=== PATIENT | female | born 1950 | race African-American/Black ===

== ENCOUNTER 2021-02-19 12:49 | Inpatient (IN) | payer OTHER ==
[2021-02-19 14:40] LABS: BASO % 0.8 % (0-2.0); EOS % 2.2 % (0-4.5); HEMATOCRIT 37.3 % (32.4-45.2); HEMOGLOBIN 12.6 GM/dL (10.7-15.3); LYMPH % 39.5 % (8-40); MCH 30.6 pg (25.7-33.7); MCHC 33.8 g/dl (32.0-36.0); MEAN CELL VOLUME 90.4 fl (80-96); MONO % 9.2 % (3.8-10.2); NEUT % 48.3 % (42.8-82.8); PLATELET COUNT 333 K/MM3 (134-434); RBC 4.12 M/mm3 (3.60-5.2)
[2021-02-19 15:06] LABS: CALCIUM 9.6 mg/dL (8.5-10.1)
[2021-02-19 15:08] LABS: ALBUMIN 3.3 g/dl (3.4-5.0); BLOOD UREA NITROGEN 14.8 mg/dL (7-18)
[2021-02-19 15:11] LABS: BILIRUBIN,TOTAL 0.4 mg/dL (0.2-1); CREATININE 0.9 mg/dL (0.55-1.3); TOT PROT 7.7 g/dl (6.4-8.2)
[2021-02-19] MEDS ORDERED: ASPIRIN 81 MG CHEWABLE TABLETS PO ONE (15:19)
[2021-02-19] MEDS ORDERED: ASPIRIN 81 MG CHEWABLE TABLETS ONE (16:13)
[2021-02-19] MEDS ORDERED: ATORVASTATIN CA 10 MG TABLET (FP) PO SCH (22:00)
[2021-02-20 03:32] VITALS: BMI 35.8
[2021-02-20 05:35] LABS: BASO % 0.5 % (0-2.0); EOS % 2.6 % (0-4.5); HEMATOCRIT 39.3 % (32.4-45.2); HEMOGLOBIN 13.1 GM/dL (10.7-15.3); LYMPH % 38.2 % (8-40); MCHC 33.4 g/dl (32.0-36.0); MEAN CELL VOLUME 89.9 fl (80-96); MEAN PLT VOLUME 8.7 fl (7.5-11.1); MONO % 10.8 % (3.8-10.2); NEUT % 47.9 % (42.8-82.8); PLATELET COUNT 305 K/MM3 (134-434); RBC 4.37 M/mm3 (3.60-5.2); RDW 12.8 % (11.6-15.6); WHITE BLOOD COUNT 12.4 K/mm3 (4.0-10.0)
[2021-02-20 05:51] LABS: CALCIUM 9.2 mg/dL (8.5-10.1)
[2021-02-20 05:52] LABS: BLOOD UREA NITROGEN 16.6 mg/dL (7-18)
[2021-02-20 05:55] LABS: CREATININE 0.8 mg/dL (0.55-1.3)
[2021-02-20 05:56] LABS: BILIRUBIN,TOTAL 0.5 mg/dL (0.2-1)
[2021-02-20 05:57] LABS: TOT PROT 7.2 g/dl (6.4-8.2)
[2021-02-20] MEDS ORDERED: ASPIRIN 81 MG CHEWABLE TABLETS PO SCH (10:00)
[2021-02-20] MEDS ORDERED: amLODIPine BESYLATE 10 MG TABLET (FP) PO SCH (10:00)
[2021-02-20] MEDS ORDERED: PANTOPRAZOLE 40 MG TABLET PO SCH (10:00)
[2021-02-20 10:47] VITALS: BP 134/84; PULSE 88; TEMP 98.3
== END 2021-02-20 13:06 | disposition home or self-care (01) | DRG 313 ==
LOC: JER 12:49 → JERBED 16:07 → J4W 02-20 00:14 → OBSVTOIN 02-20 02:24
PROVIDERS: ADMIT Internal Medicine; ATTEND Internal Medicine
DX: R07.9 Chest pain, unspecified (principal); R00.2 Palpitations; I10 Essential (primary) hypertension; E78.5 Hyperlipidemia, unspecified; E03.9 Hypothyroidism, unspecified; I27.20 Pulmonary hypertension, unspecified; R42 Dizziness and giddiness; I25.10 Atherosclerotic heart disease of native coronary artery without angina pectoris; E78.00 Pure hypercholesterolemia, unspecified; E66.01 Morbid (severe) obesity due to excess calories; Z68.35 Body mass index [BMI] 35.0-35.9, adult
CPT/HCPCS: 36415; 71045-TC-FY; 80053; 82550; 82553; 84443; 84484; 85025; 93005; 93010; 99285-25; C9803; G0378; U0003; U0005

== ENCOUNTER 2021-11-28 13:26 | Inpatient (IN) | payer OTHER ==
[2021-11-28 13:33] VITALS: BMI 35.4
[2021-11-28 15:05] LABS: BASO % 0.4 % (0-2.0); EOS % 3.7 % (0-4.5); HEMATOCRIT 39.4 % (32.4-45.2); HEMOGLOBIN 13.1 GM/dL (10.7-15.3); LYMPH % 32.4 % (8-40); MCH 29.6 pg (25.7-33.7); MCHC 33.2 g/dl (32.0-36.0); MEAN CELL VOLUME 89.1 fl (80-96); MEAN PLT VOLUME 7.9 fl (7.5-11.1); MONO % 8.4 % (3.8-10.2); NEUT % 55.1 % (42.8-82.8); PLATELET COUNT 349 10^3/uL (134-434); RBC 4.43 M/mm3 (3.60-5.2); RDW 13.4 % (11.6-15.6); WHITE BLOOD COUNT 8.1 K/mm3 (4.0-10.0)
[2021-11-28 15:18] LABS: CALCIUM 9.6 mg/dL (8.5-10.1)
[2021-11-28 15:20] LABS: ALBUMIN 3.4 g/dl (3.4-5.0); ANION GAP 5 MMOL/L (8-16); BLOOD UREA NITROGEN 10.3 mg/dL (7-18); CHLORIDE 106 mmol/L (98-107); CO2 32 mmol/L (21-32); GLUCOSE,RANDOM 111 mg/dL (74-106); SODIUM 143 mmol/L (136-145)
[2021-11-28 15:23] LABS: CREATININE 0.6 mg/dL (0.55-1.3); SGOT/AST 25 U/L (15-37); SGPT/ALT 22 U/L (13-61)
[2021-11-28 15:24] LABS: BILIRUBIN,TOTAL 0.3 mg/dL (0.2-1)
[2021-11-28 15:26] LABS: ALK PHOS 79 U/L (45-117)
[2021-11-28] MEDS ORDERED: amLODIPine BESYLATE 10 MG TABLET (FP) PO ONE (17:40)
[2021-11-28] MEDS ORDERED: ASPIRIN 325 MG ENTERIC COATED TABLET (FP) PO ONE (17:40)
[2021-11-28] MEDS ORDERED: ASPIRIN 325 MG ENTERIC COATED TABLET (FP) ONE (18:14)
[2021-11-28] MEDS ORDERED: amLODIPine BESYLATE 10 MG TABLET (FP) ONE (18:15)
[2021-11-29] MEDS ORDERED: ASPIRIN 81 MG CHEWABLE TABLETS ONE (09:24)
[2021-11-29] MEDS ORDERED: amLODIPine BESYLATE 10 MG TABLET (FP) ONE (09:24)
[2021-11-29] MEDS: amLODIPine BESYLATE 10 MG TABLET (FP) PO SCH (09:37)
[2021-11-29] MEDS: ASPIRIN 81 MG CHEWABLE TABLETS PO SCH (09:37)
[2021-11-29] MEDS ORDERED: ATORVASTATIN CA 10 MG TABLET (FP) PO SCH (22:00)
[2021-11-29] MEDS ORDERED: MECLIZINE HCL 12.5 MG TABLET PO PRN (22:24)
[2021-11-30 07:36] LABS: BASO % 0.4 % (0-2.0); EOS % 4.6 % (0-4.5); HEMATOCRIT 38.1 % (32.4-45.2); HEMOGLOBIN 12.3 GM/dL (10.7-15.3); LYMPH % 45.8 % (8-40); MCHC 32.3 g/dl (32.0-36.0); MEAN PLT VOLUME 8.4 fl (7.5-11.1); MONO % 8.6 % (3.8-10.2); NEUT % 40.6 % (42.8-82.8); PLATELET COUNT 337 10^3/uL (134-434); RBC 4.23 M/mm3 (3.60-5.2); RDW 13.4 % (11.6-15.6); WHITE BLOOD COUNT 7.9 K/mm3 (4.0-10.0)
[2021-11-30] MEDS: ASPIRIN 81 MG CHEWABLE TABLETS PO SCH ×2 (07:57→09:20)
[2021-11-30] MEDS: amLODIPine BESYLATE 10 MG TABLET (FP) PO SCH ×2 (07:57→09:20)
[2021-11-30 08:05] LABS: BLOOD UREA NITROGEN 13.6 mg/dL (7-18)
[2021-11-30 08:06] LABS: CALCIUM 9.1 mg/dL (8.5-10.1)
[2021-11-30 08:08] LABS: CREATININE 0.6 mg/dL (0.55-1.3)
[2021-11-30 08:10] LABS: BILIRUBIN,TOTAL 0.5 mg/dL (0.2-1)
[2021-11-30] MEDS ORDERED: REGADENOSON 0.4 MG/5 ML PRE-FILLED SYRINGE IVPUSH ONE ×2 (09:49→11:00)
[2021-11-30 15:03] VITALS: BP 143/61; PULSE 78; TEMP 98.6
== END 2021-11-30 17:13 | disposition home or self-care (01) | DRG 149 ==
LOC: JER 13:26 → JERBED 17:43 → J4W 11-29 15:45
PROVIDERS: ADMIT Internal Medicine; ATTEND Internal Medicine
DX: R42 Dizziness and giddiness (principal); R77.8 Other specified abnormalities of plasma proteins; I10 Essential (primary) hypertension; E78.5 Hyperlipidemia, unspecified; E66.9 Obesity, unspecified; Z68.35 Body mass index [BMI] 35.0-35.9, adult
CPT/HCPCS: 36415; 70450-TC; 78452-TC; 80053; 80061; 82550; 82553; 83036; 84439; 84443; 84484; 85025; 93005; 93010; 93017; 93306-TC; 93880-TC; 99285-25; A9502; C9803; J2785; U0003; U0005

== ENCOUNTER → 2022-07-26 | Day surgery (SDC) | payer OTHER | END | disposition home or self-care (01) | LOC: JRADIR 08:36 | PROVIDERS: ATTEND Internal Medicine Endocrinology, Diabetes & Metabolism | PROC: 0G9G3ZX Drainage of Left Thyroid Gland Lobe, Percutaneous Approach, Diagnostic (ICD-10-PCS; principal; 2022-07-26) | DX: E04.1 Nontoxic single thyroid nodule (principal) | CPT/HCPCS: 10005; 76942; 88173; 88305-TC ==

== ENCOUNTER 2024-10-21 09:43 | Emergency (ER) | payer OTHER ==
[2024-10-21 09:48] VITALS: BP 134/63; PULSE 87; RESP 18; TEMP 98.5; BMI 35.4
[2024-10-21] MEDS ORDERED: MECLIZINE HCL 25 MG TABLET (FP) ONE (12:35)
[2024-10-21] MEDS ORDERED: METOCLOPRAMIDE HCL INJECTION 10 MG/2 ML VIAL ONE (12:36)
[2024-10-21] MEDS ORDERED: ACETAMINOPHEN INJECTION 100 ML ONE (12:36)
[2024-10-21] MEDS: ACETAMINOPHEN 1000 MG/100 ML BAG IVPB ONE (12:53)
[2024-10-21] MEDS: SODIUM CHLORIDE 0.9% 1000 ML INFUS.BAG IV ONE (12:53)
[2024-10-21] MEDS: MECLIZINE HCL 25 MG TABLET (FP) PO ONE (12:53)
[2024-10-21] MEDS: METOCLOPRAMIDE HCL INJECTION 10 MG/2 ML VIAL IVPB ONE (12:54)
== END 2024-10-21 14:46 | disposition home or self-care (01) ==
LOC: JER 09:43
PROC: 3E033NZ Introduction of Analgesics, Hypnotics, Sedatives into Peripheral Vein, Percutaneous Approach (ICD-10-PCS; principal; 2024-10-21)
PROC: 3E033GC Introduction of Other Therapeutic Substance into Peripheral Vein, Percutaneous Approach (ICD-10-PCS; 2024-10-21)
PROC: 3E033GC Introduction of Other Therapeutic Substance into Peripheral Vein, Percutaneous Approach (ICD-10-PCS; 2024-10-21)
DX: R51.9 Headache, unspecified (principal); R42 Dizziness and giddiness
CPT/HCPCS: 70450-TC; 99284-25; J0131

== ENCOUNTER 2024-10-25 04:15 | Day surgery (SDC) | payer OTHER ==
[2024-10-24 17:03] VITALS: BMI 35.4
[2024-10-25] MEDS ORDERED: ACETAMINOPHEN 500 MG TABLET (FP) PO PRN (09:18)
[2024-10-25 13:08] VITALS: RESP 16
[2024-10-25] MEDS: LIDOCAINE HCL 1% PRESERVATIVE FREE - 30ML VIAL IJ ONE ×2 (13:52)
[2024-10-25] MEDS: DEXAMETHASONE SOD PHOSPHATE 10 MG/1 ML VIAL IVPUSH ONE ×2 (13:52)
[2024-10-25 14:12] VITALS: BP 136/67; PULSE 77; TEMP 97.7
== END 2024-10-25 14:30 | disposition home or self-care (01) ==
LOC: JASU-SURG 04:15
PROVIDERS: ATTEND Pain Medicine Pain Medicine
PROC: 3E0R3BZ Introduction of Anesthetic Agent into Spinal Canal, Percutaneous Approach (ICD-10-PCS; 2024-10-25)
PROC: 3E0R33Z Introduction of Anti-inflammatory into Spinal Canal, Percutaneous Approach (ICD-10-PCS; principal; 2024-10-25 14:45)
DX: M54.16 Radiculopathy, lumbar region (principal)
CPT/HCPCS: 76000-TC-FY; J1100

== ENCOUNTER 2025-04-04 09:54 | Inpatient (IN) | payer OTHER ==
[2025-04-04] MEDS ORDERED: ACETAMINOPHEN INJECTION 100 ML ONE (10:55)
[2025-04-04 11:00] LABS: ABSOLUTE IMMATURE GRANULOCYTES 0.03 x10^3/uL (0.0-0.031); BASOPHILS # 0.04 x10^3/uL (0.01-0.08); EOSINOPHIL % 0.1 % (0.7-5.8); EOSINOPHILS # 0.01 x10^3/uL (0.04-0.36); HEMATOCRIT 39.3 % (34.1-44.9); HEMOGLOBIN 12.5 g/dL (11.2-15.7); MCHC 31.8 g/dl (32.2-35.5); MEAN CELL VOLUME 91.8 fl (79.4-94.8); MEAN PLT VOLUME 9.9 fl (9.4-12.3); MONOCYTE # 0.41 x10^3/uL (0.24-0.86); MONOCYTE % 3.8 % (4.7-12.5); PLATELET COUNT 303 x10^3/uL (182-369); RDW 13.2 % (12.4-16.6)
[2025-04-04] MEDS: ACETAMINOPHEN 1000 MG/100 ML BAG IVPB ONE (11:01)
[2025-04-04 11:28] LABS: EPI CELLS 13 /uL (0-25.1); HYALINE CASTS 1 /uL (0-3.1); URINE APPEARANCE CLEAR; URINE BACTERIA 92 /uL (0-1359); URINE BILIRUBIN NEGATIVE (NEGATIVE); URINE COLOR YELLOW; URINE GLUCOSE (UA) NEGATIVE (NEGATIVE); URINE KETONE TRACE (NEGATIVE); URINE LEUK ESTERASE NEGATIVE (NEGATIVE); URINE NITRITE NEGATIVE (NEGATIVE); URINE PROTEIN 1+ (NEGATIVE); URINE RBC 31 /uL (0-23.9); URINE UROBILINOGEN 0.2 mg/dL (0.2-1.0); URINE WBC 20 /uL (0-25.8)
[2025-04-04 12:40] LABS: CALCIUM 9.7 mg/dL (8.5-10.1)
[2025-04-04 12:41] LABS: ALBUMIN 3.3 g/dl (3.4-5.0); BLOOD UREA NITROGEN 12.1 mg/dL (7-18); MAGNESIUM 2.4 mg/dL (1.8-2.4)
[2025-04-04 12:44] LABS: CREATININE 0.7 mg/dL (0.55-1.3)
[2025-04-04 12:46] LABS: BILIRUBIN,TOTAL 0.2 mg/dL (0.2-1); TOT PROT 7.8 g/dl (6.4-8.2)
[2025-04-04] MEDS ORDERED: IBUPROFEN 600 MG TABLET (FP) PO ONE (14:25)
[2025-04-04] MEDS: IBUPROFEN 600 MG TABLET (FP) PO ONE (14:29)
[2025-04-04] MEDS ORDERED: cefTRIAXone SODIUM 1 GM VIAL ONE (16:14)
[2025-04-04 19:33] LABS: HCV DIAGNOSTIC IN-HOUSE W/RFLX NON-REACTIVE (NONREACTIVE); HIV INTERPRETATION NEGATIVE (NEGATIVE)
[2025-04-04] MEDS ORDERED: MAG HYDROX/AL HYDROX/SIMETH -MYLANTA- ORAL SUSPENSION PO ONE (21:34)
[2025-04-04] MEDS: GABAPENTIN 300 MG CAPSULE PO SCH (21:50)
[2025-04-04] MEDS: MAG HYDROX/AL HYDROX/SIMETH 30 ML UNIT-DOSE CUP PO ONE (21:50)
[2025-04-04] MEDS: SENNOSIDES 8.6MG TABLET (FP) PO PRN (22:33)
[2025-04-05] MEDS: ACETAMINOPHEN 1000 MG/100 ML BAG IVPB ONE (01:02)
[2025-04-05 08:21] LABS: ABSOLUTE IMMATURE GRANULOCYTES 0.04 x10^3/uL (0.0-0.031); BASOPHILS # 0.01 x10^3/uL (0.01-0.08); HEMATOCRIT 43.4 % (34.1-44.9); HEMOGLOBIN 13.9 g/dL (11.2-15.7); MEAN CELL VOLUME 90.4 fl (79.4-94.8); MEAN PLT VOLUME 10.6 fl (9.4-12.3); MONOCYTE # 0.24 x10^3/uL (0.24-0.86); MONOCYTE % 2.3 % (4.7-12.5); PLATELET COUNT 312 x10^3/uL (182-369)
[2025-04-05 08:55] LABS: BLOOD UREA NITROGEN 15.4 mg/dL (7-18); CALCIUM 10.5 mg/dL (8.5-10.1)
[2025-04-05 08:56] LABS: ALBUMIN 3.4 g/dl (3.4-5.0)
[2025-04-05 08:59] LABS: CREATININE 0.7 mg/dL (0.55-1.3)
[2025-04-05 09:01] LABS: BILIRUBIN,TOTAL 0.4 mg/dL (0.2-1); TOT PROT 7.8 g/dl (6.4-8.2)
[2025-04-05] MEDS: FUROSEMIDE 20 MG TABLET (FP) PO SCH (09:11)
[2025-04-05] MEDS: LOSARTAN POTASSIUM 25 MG TABLET PO SCH (09:11)
[2025-04-05] MEDS: amLODIPine BESYLATE 10 MG TABLET (FP) PO SCH (09:11)
[2025-04-05] MEDS: ATORVASTATIN CA 10 MG TABLET (FP) PO SCH (09:11)
[2025-04-05] MEDS: PANTOPRAZOLE 40 MG TABLET PO SCH (10:51)
[2025-04-05] MEDS: LACTATED RINGERS SOLUTION 1,000 ML/1,000 ML INFUS.BAG IV SCH (11:28)
[2025-04-05] MEDS: PANTOPRAZOLE SODIUM 40 MG VIAL IVPUSH SCH (11:28)
[2025-04-05] MEDS ORDERED: POLYETHYLENE GLYCOL (HEALTHYLAX) 3350 17 GM PACKET PO PRN (17:52)
[2025-04-06 08:15] LABS: HEMATOCRIT 40.8 % (34.1-44.9); HEMOGLOBIN 12.9 g/dL (11.2-15.7); MCHC 31.6 g/dl (32.2-35.5); MEAN CELL VOLUME 91.3 fl (79.4-94.8); PLATELET COUNT 327 x10^3/uL (182-369); RDW 13.3 % (12.4-16.6)
[2025-04-06 08:38] LABS: POTASSIUM 3.7 mmol/L (3.5-5.1)
[2025-04-06 08:44] LABS: ALBUMIN 2.9 g/dl (3.4-5.0); CALCIUM 9.2 mg/dL (8.5-10.1)
[2025-04-06 08:45] LABS: BLOOD UREA NITROGEN 16.8 mg/dL (7-18)
[2025-04-06 08:47] LABS: BILIRUBIN,TOTAL 0.5 mg/dL (0.2-1); CREATININE 0.8 mg/dL (0.55-1.3); TOT PROT 6.6 g/dl (6.4-8.2)
[2025-04-07] MEDS: ONDANSETRON 4 MG/2 ML VIAL IVPUSH PRN (00:44)
[2025-04-07 08:09] LABS: HEMATOCRIT 42.4 % (34.1-44.9); HEMOGLOBIN 13.5 g/dL (11.2-15.7); MCHC 31.8 g/dl (32.2-35.5); MEAN CELL VOLUME 91.8 fl (79.4-94.8); MEAN PLT VOLUME 10.1 fl (9.4-12.3); PLATELET COUNT 332 x10^3/uL (182-369)
[2025-04-07 08:22] LABS: POTASSIUM 3.5 mmol/L (3.5-5.1)
[2025-04-07 08:24] LABS: CALCIUM 9.6 mg/dL (8.5-10.1)
[2025-04-07 08:25] LABS: BLOOD UREA NITROGEN 16.9 mg/dL (7-18)
[2025-04-07 08:28] LABS: CREATININE 0.8 mg/dL (0.55-1.3)
[2025-04-07 08:29] LABS: BILIRUBIN,TOTAL 0.4 mg/dL (0.2-1)
[2025-04-07 08:30] LABS: TOT PROT 6.9 g/dl (6.4-8.2)
[2025-04-07] MEDS ORDERED: LIDOCAINE VISCOUS 2% ORAL/TOP 15 ML UNIT-DOSE CUP ONE (10:13)
[2025-04-07] MEDS ORDERED: MIDAZOLAM HCL 2 MG/2 ML SINGLE DOSE VIAL ONE (10:22)
[2025-04-09] MEDS: POLYETHYLENE GLYCOL (HEALTHYLAX) 3350 17 GM PACKET PO SCH (16:52)
[2025-04-09] MEDS: SENNOSIDES 8.6MG TABLET (FP) PO SCH (22:01)
[2025-04-10 07:46] VITALS: RESP 18
[2025-04-10 14:16] VITALS: BP 117/65; PULSE 80; TEMP 98.1
[2025-04-11 07:53] LABS: POTASSIUM 3.7 mmol/L (3.5-5.1)
[2025-04-11 07:55] LABS: ALBUMIN 2.8 g/dl (3.4-5.0); CALCIUM 8.9 mg/dL (8.5-10.1)
[2025-04-11 07:56] LABS: BLOOD UREA NITROGEN 10.9 mg/dL (7-18)
[2025-04-11 07:59] LABS: CREATININE 0.7 mg/dL (0.55-1.3)
[2025-04-11 08:00] LABS: ABSOLUTE IMMATURE GRANULOCYTES 0.03 x10^3/uL (0.0-0.031); BASOPHILS # 0.03 x10^3/uL (0.01-0.08); BILIRUBIN,TOTAL 0.4 mg/dL (0.2-1); HEMATOCRIT 37.1 % (34.1-44.9); HEMOGLOBIN 11.9 g/dL (11.2-15.7); MCHC 32.1 g/dl (32.2-35.5); MEAN CELL VOLUME 92.5 fl (79.4-94.8); MEAN PLT VOLUME 10.1 fl (9.4-12.3); MONOCYTE % 7.7 % (4.7-12.5); PLATELET COUNT 332 x10^3/uL (182-369); RDW 12.9 % (12.4-16.6); TOT PROT 6.2 g/dl (6.4-8.2)
[2025-04-11 14:06] VITALS: BMI 34.3
== END 2025-04-11 13:00 | disposition home or self-care (01) | DRG 390 ==
LOC: JER 09:54 → JERBED 15:58 → J7W 17:31
PROVIDERS: ADMIT Internal Medicine; ATTEND Internal Medicine
PROC: 0DJ08ZZ Inspection of Upper Intestinal Tract, Via Natural or Artificial Opening Endoscopic (ICD-10-PCS; principal; 2025-04-07 11:00)
DX: K56.7 Ileus, unspecified (principal); I10 Essential (primary) hypertension; E78.5 Hyperlipidemia, unspecified
CPT/HCPCS: 36415; 71045-TC-FY; 74019-TC-FY; 74021-TC-FY; 74176-TC; 76705-TC; 80053; 81003; 83690; 83735; 85025; 85027; 86803; 87086; 87389; 93005; 93010; 99285-25